=== PATIENT | male | born 1980 | race African-American/Black ===

== ENCOUNTER 2023-10-17 11:03 | Inpatient (IN) | payer MEDICAID, SELFPAY ==
[2023-10-17] VITALS (57 sets, daily range): BP systolic 124–159; BP diastolic 85–113; PULSE 62–80; RESP 12–37; TEMP 36.7; O2SAT 98–100
--- NOTE | ~2023-10-17 | CT_ITS ---
EXAMINATION: CT abdomen pelvis w con DATE: 10/17/2023 12:58 INDICATION: Pancreatitis with chronic abdominal pain, nausea and vomiting TECHNIQUE: Computed tomography (CT) of the abdomen and pelvis was performed with 100 mL Omnipaque-350 intravenous contrast. Automated exposure control and iterative reconstruction technique were employe d. The dose-length product was 227.42 mGy-cm. COMPARISON: None FINDINGS: Minimal dependent atelectasis in the lower lobes. Heart size is normal. No pericardial or pleural eff usion. Mild focal hepatic steatosis along the ligamentum teres. There are a few scattered subpleural low-attenuation likely hepatic cysts. Gallbladder, spleen, bilateral adrenal glands and kidneys are n ormal. The common bile duct is dilated to 10 mm but appears stable distally with no evident choledoch olithiasis. There is dilation of the main pancreatic duct beginning at the head of the pancreas. There is subtle haziness to the fat surrounding the head and uncinate process of the pancreas and some wall thickenin g of the adjacent second and third portion of the duodenum which suggests acute pancreatitis. 2.6 x 2 .0 x 2.0 cm loculated fluid collection which appears centered within the uncinate process of the panc reas which is age indeterminate potentially either acute or chronic collection or more chronic walled off necrosis. Bowels including the appendix are otherwise normal. Bladder is normal. No free intraperitoneal gas or fluid. No pathologically enlarged abdominal or pelvic lymphadenopathy. Minimal lumbar levocurvature. IMPRESSION: 1. Inflammatory stranding surrounding the head and uncinate process of pancreas with age-indeterminat e 2.6 x 2.0 x 2.0 cm loculated fluid collection within the uncinate process of the pancreas which cou ld represent either an acute necrotic collection or more chronic walled off necrosis related to prior pancreatitis. 2. Dilation of the common and main pancreatic ducts without evident obstructing gallstones. Could con project control analyst MRCP however for more sensitive evaluation. Reviewed, dictated and finalized at location A. IMPRESSION: 1. Inflammatory stranding surrounding the head and uncinate process of pancreas with age-indeterminate 2.6 x 2.0 x 2.0 cm loculated fluid collection within th e uncinate process of the pancreas which could represent either an acute necrot ic collection or more chronic walled off necrosis related to prior pancreatitis . 2. Dilation of the common and main pancreatic ducts without evident obstructing gallstones. Could consider MRCP however for more sensitive evaluation.
[2023-10-17 11:18] LABS: Hematocrit 42.7 % (42.0-52.0); Hemoglobin 14.3 g/dL (14.0-18.0); Red Blood Count 4.67 M/mm3 (4.6-6.20); White Blood Count 5.9 K/mm3 (4.5-10.0)
[2023-10-17 11:19] LABS: Basophils Percent Auto 0.7 % (0.2-1.2); Eosinophils Absolute Auto 0.1 K/mm3 (0-0.3); Immature Granulocyte Absolute 0.01 K/mm3 (0.00-0.031); Immature Granulocyte Percent A 0.2 % (0-0.5); Lymphocytes Absolute Auto 1.67 K/mm3 (0.9-3.2); Lymphocytes Percent Auto 28.3 % (18.3-44.2); Mean Corpuscular HGB Conc 33.5 g/dl (32-36); Mean Corpuscular Hemoglobin 30.6 pg (26-34); Mean Corpuscular Volume 91.4 fl (80-100); Mean Platelet Volume 10.5 fl (7.4-10.4); Monocytes Absolute Auto 0.6 K/mm3 (0.1-0.6); Monocytes Percent Auto 10.8 % (2.6-8.5); Neutrophils Absolute Auto 3.5 K/mm3 (1.3-6.7); Platelet Count Result 240 k/mm3 (150-375); Red Cell Distribution Width 13.2 % (11.5-14.5)
[2023-10-17 11:45] LABS: Appearance Urine Clear (Clear); Bacteria Urine None Seen /hpf; Bilirubin Urine Negative (Negative); Blood Urine Negative (Negative); Color Urine Dark Yellow (Yellow); Glucose Urine UA Negative (Negative); Ketones Urine 2+ mg/dL (Negative); Leukocyte Esterase Ur Trace LEU/UL (Negative); Nitrate Urine Negative (Negative); Non Pathogenic Casts 0-2; Protein Urine Trace mg/dL (Negative); RBC Urine 0-2 /hpf (0-2); Specific Grav Ur 1.019 (1.001-1.035); Squamous Epithelial Cell Urine None Seen /hpf (Few); WBC Urine 0-5 /hpf (0-3); pH Urine 6.5 (5.0-9.0)
[2023-10-17 11:46] LABS: Add Urine Microscopic? YES
[2023-10-17 12:25] LABS: Alanine Aminotransferase 31 U/L (6-50); Albumin Level 4.7 g/dL (3.5-5.1); Alkaline Phosphatase 170 U/L (38-126); Anion Gap 8 mmol/L (4-12); Aspartate Amino Transferase 31 U/L (17-59); Bilirubin,Total 2.1 mg/dL (0.2-1.3); Blood Urea Nitrogen 6 mg/dL (9-20); Calcium 9.4 mg/dL (8.4-10.2); Carbon Dioxide 28 mmol/L (22-30); Chloride 102 mmol/L (98-107); Estimated CRCL calculation 112 ml/min; Estimated Glomerular Filt Rate > 60; Glucose 80 mg/dL (65-110); Lipase 1109 U/L (23-300); Potassium 3.5 mmol/L (3.4-5.0); Sodium 138 mmol/L (137-145)
--- NOTE | 2023-10-17 12:40 | ED.ABDPAIN ---
HPI - Abdominal Pain General Chief Complaint: Abdominal Pain <Jay Alvarez MD - Last Filed: 10/21/23 07:00> Stated Complaint: abd pain <Jay Alvarez MD - Last Filed: 10/21/23 07:00> Time Seen by Provider: 10/17/23 11:56 <Jay Alvarez MD - Last Filed: 10/21/23 07:00> History of Present Illness HPI narrative: 43-year-old male with history of pancreatitis secondary to alcohol consumption presents emergency department complaining epigastric pain state he feels is reminiscent to his previous episodes of pancreatitis. Patient states he has had some Worsening decreased p.o. intake over the course of the last month with some associated nausea which is help patient states his pancreatitis develops. patient did drink alcohol last night It did have worsening nausea and vomiting. Patient attempted have follow-up with a primary care physician today and was referred to the emergency department <Jay Alvarez MD - Last Filed: 10/21/23 07:00> Related Data Home Medications: Home Medications Medication Instructions Recorded Confirmed No Home Medications 10/18/23 10/18/23 <Jay Alvarez MD - Last Filed: 10/21/23 07:00> Allergies/Adverse Reactions: Allergies Allergy/AdvReac Type Severity Reaction Status Date / Time No Known Allergies Allergy Verified 10/18/23 18:35 <Jay Alvarez MD - Last Filed: 10/21/23 07:00> Review of Systems Review of Systems: All systems reviewed & are unremarkable except as noted in HPI and below <Jay Alvarez MD - Last Filed: 10/21/23 07:00> [facility] Past Medical History Medical History: Medical History (Updated 10/20/23 @ 12:19 by Rayshawn Edmonds MD) Heavy alcohol use Pancreatitis Prominent ampulla of Vater <Jay Alvarez MD - Last Filed: 10/21/23 07:00> Surgical History Surgical History: Surgical History No significant past surgical history <Jay Alvarez MD - Last Filed: 10/21/23 07:00> Family History Family History: Family History Grandparent Hypertension Cancer <Jay Alvarez MD - Last Filed: 10/21/23 07:00> Social History Social History: Social History Smoking status: Former smoker Tobacco type: cigarettes Second hand tobacco smoke exposure: Yes Smoking end date: 10/18/23 Alcohol intake: current Drinks per week: 4 Substance use: current Substance use type: marijuana Do You Feel Safe in your Home?: Yes Lack of Transportation: No Lack of Food: Never True Current Housing: I Have Housing Concerned About Future Housing: No Difficulty Paying Gas/Electric Bills: No Difficulty Paying for Meds: No Currently Unemployed: No Education: Decline to Answer Difficulty w/ Childcare or Family Care: No Spiritual care concerns: No <Jay Alvarez MD - Last Filed: 10/21/23 07:00> Exam Narrative: APPEARANCE: Well appearing, no pain, no distress, well-nourished. HEAD: normocephalic, atraumatic. EYES: PERRLA/EOMI, conjunctivae clear. NOSE: Normal no drainage EARS:TMS clear with good light reflex. THROAT: Pharynx clear, no exudate. NECK: Supple. No adenopathy, no masses. RESPIRATORY: Airway patent, respirations nonlabored. Clear to auscultation bilaterally, no rales, rhonchi, wheezing. CARDIOVASCULAR: Regular rate and rhythm without murmurs rubs or gallops. ABDOMINAL: Soft, nontender, nondistended, normal bowel sounds MUSCULOSKELETAL: Moves all extremities. Strength/ROM intact, No edema, No calf tenderness. NEURO: Alert. Cranial nerves II through XII intact. grossly intact SKIN: Warm, dry. Normal Color <Jay Alvarez MD - Last Filed: 10/21/23 07:00> Course Course Emergency Course: patient was accepted for transfer to [facility] for possible necrotizing pancreatitis
[2023-10-17] MEDS: SODIUM CHLORIDE 0.9% IV 1,000 ML 999 ML IV CONT ×2 (12:42→15:21)
[2023-10-18] VITALS (11 sets, daily range): BP systolic 123–155; BP diastolic 86–99; PULSE 59–82; RESP 14–18; TEMP 36.4–36.8; O2SAT 97–100
[2023-10-18] MEDS: SODIUM CHLORIDE 0.9% IV 1,000 ML 125 ML IV CONT ×3 (00:56→16:34)
--- NOTE | 2023-10-18 13:08 | PC.NURSE ---
updated pt on bed status. offered pt toiletry items and denied but socks were given
--- NOTE | 2023-10-18 15:53 | PC.NURSE ---
update bed status - pt remains on waitlist [facility] @ max. Capacity
--- NOTE | 2023-10-18 17:32 | PM.IMHP ---
H&P: HPI History of Present Illness Date/Time: 10/18/23 17:32 Chief Complaint: Abdominal Pain Narrative: 43 y/o M presents here with abdominal pain with PMH of acute pancreatitis and alcohol use. The patient presents here for further evaluation of abdominal pain. The patient reports onset of epigastric abdominal pain that has been intermittent/daily for the past month. Sought care today at the direction of a PCP that he is attempting to establish care. The pain is described as burning/aching/hunger pain, intermittent radiation into his back or RUQ, intermittent, aggravated by eating, and alleviated by baking soda/water or Tylenol occasionally. The patient reported the pain is similar to previous episodes of pancreatitis. Currently accompanied by reduced p.o. intake, early satiety, GERD, and nausea with occasional vomiting. N/V typically occurring about an hour after eating. Current alcohol: 3-4 drinks on 2-3 nights per week, before this month he was pint and a few drinks after daily since 2020 (started to become excessive during the pandemic). Last drink on 10/15. He does not follow any particular diet (i.e. low fat). Last episode of pancreatitis that he sought treatment for was on 2021. Denies any current tremors, diaphoresis, agitation, hallucinations, fever, chills, body aches. Has had 3-4 liquid stools today. Patient also a daily smoker. Initial VS at presentation: 98? F, HR 74, RR 16, 135/96, and 98% on RA. ED workup showed: No leukocytosis, no anemia, creatinine 0.7 and normal GFR you, total bilirubin 2.1, alk-phos 170, lipase 1109, and UA not consistent with UTI. CT of the abdomen/pelvis showed inflammatory stranding surrounding the head and uncinate process of the pancreas with an age indeterminate loculated fluid collection within the uncinate process of the pancreas and dilation of the common in main pancreatic ducts without evident obstructing gallstone. Review of Systems Review of Systems: All systems reviewed & are unremarkable except as noted in HPI and below PMFSH Past Medical History Medical History Heavy alcohol use Pancreatitis Surgical History Surgical History No significant past surgical history Family History Family History Grandparent Hypertension Cancer Social History Social History Smoking status: Former smoker Tobacco type: cigarettes Second hand tobacco smoke exposure: Yes Smoking end date: 10/18/23 Alcohol intake: current Drinks per week: 4 Substance use: current Substance use type: marijuana Do You Feel Safe in your Home?: Yes Lack of Transportation: No Lack of Food: Never True Current Housing: I Have Housing Concerned About Future Housing: No Difficulty Paying Gas/Electric Bills: No Difficulty Paying for Meds: No Currently Unemployed: No Education: Decline to Answer Difficulty w/ Childcare or Family Care: No Spiritual care concerns: No Meds Home Medications and Allergies Home Medications Medication Instructions Recorded Confirmed Type No Home Medications 10/18/23 10/18/23 History Allergies Allergy/AdvReac Type Severity Reaction Status Date / Time No Known Allergies Allergy Verified 10/18/23 18:35 Vital Signs Vital Signs - 24 hr 10/17/23 17:45 10/17/23 18:00 10/17/23 18:01 Pulse Rate 74 76 75 Respiratory Rate 17 22 H 21 H Blood Pressure 136/98 H Pulse Oximetry 100 100 100 10/17/23 18:16 10/17/23 18:30 10/17/23 18:45 Pulse Rate 75 67 73 Respiratory Rate 12 16 16 Blood Pressure Pulse Oximetry 100 10/17/23 19:02 10/17/23 19:03 10/17/23 19:21 Pulse Rate 80 76 Respiratory Rate 17 22 H Blood Pressure 124/85 Pulse Oximetry 100 10/17/23 19:30 10/17/23 19:45 10/17/23 20:0
[2023-10-18] MEDS: SODIUM CHLORIDE 0.9% IV 1,000 ML 175 ML IV CONT (17:50)
--- NOTE | 2023-10-18 17:53 | PC.NURSE ---
ordered pt clear liquid
--- NOTE | 2023-10-18 18:28 | PC.NURSE ---
This patient, Mekhi Griffin, was admitted to [address] [place] [address] Room 314-02 at 18:15 Patient/family oriented to hospital policies and general routines including ID bracelet, bed and alarms, visiting hours, pain management, procedures, bathroom and other care routines, personal items, smoking policy, room service/diet, and visiting hours. Information on how to activate the Rapid Response Team has been discussed. Patient/Family are encouraged to report perceived risks to care and to ask questions if they do not understand what they are told or what they should do.
[2023-10-18] MEDS: MEROPENEM 1 GM/NS 100 ML 1 GM/100 ML BAG IVPB (22:39)
[2023-10-18] MEDS: traZODone HCL 50 MG TABLET PO (22:39)
[2023-10-19] MEDS: SODIUM CHLORIDE 0.9% IV 1,000 ML 175 ML IV CONT ×4 (02:00→21:09)
[2023-10-19 06:00] VITALS: BP 143/95; PULSE 66; RESP 16; TEMP 36.6; O2SAT 100
[2023-10-19] MEDS: MEROPENEM 1 GM/NS 100 ML 1 GM/100 ML BAG IVPB ×3 (06:33→21:09)
[2023-10-19 06:47] LABS: Basophils Percent Auto 0.6 % (0.2-1.2); Eosinophils Absolute Auto 0.1 K/mm3 (0-0.3); Eosinophils Percent Auto 2.3 % (0-4.4); Hematocrit 35.3 % (42.0-52.0); Immature Granulocyte Absolute 0.01 K/mm3 (0.00-0.031); Immature Granulocyte Percent A 0.2 % (0-0.5); Lymphocytes Absolute Auto 1.96 K/mm3 (0.9-3.2); Mean Corpuscular Hemoglobin 31.2 pg (26-34); Mean Corpuscular Volume 91.7 fl (80-100); Mean Platelet Volume 10.8 fl (7.4-10.4); Monocytes Absolute Auto 0.6 K/mm3 (0.1-0.6); Monocytes Percent Auto 11.8 % (2.6-8.5); Neutrophils Absolute Auto 2.4 K/mm3 (1.3-6.7); Neutrophils Percent Auto 47.1 % (45.5-73.1); Platelet Count Result 190 k/mm3 (150-375); Red Blood Count 3.85 M/mm3 (4.6-6.20); Red Cell Distribution Width 13.2 % (11.5-14.5); White Blood Count 5.2 K/mm3 (4.5-10.0)
[2023-10-19 06:58] LABS: Alanine Aminotransferase 46 U/L (6-50); Albumin Level 3.7 g/dL (3.5-5.1); Alkaline Phosphatase 151 U/L (38-126); Anion Gap 5 mmol/L (4-12); Aspartate Amino Transferase 37 U/L (17-59); Bilirubin,Total 2.2 mg/dL (0.2-1.3); Blood Urea Nitrogen 4 mg/dL (9-20); Calcium 8.5 mg/dL (8.4-10.2); Carbon Dioxide 25 mmol/L (22-30); Chloride 109 mmol/L (98-107); Estimated CRCL calculation 112 ml/min; Estimated Glomerular Filt Rate > 60; Glucose 83 mg/dL (65-110); Lipase 1120 U/L (23-300); Magnesium 1.8 mg/dL (1.6-2.3); Phosphorus 3.1 mg/dL (2.5-4.5); Potassium 3.6 mmol/L (3.4-5.0); Sodium 139 mmol/L (137-145)
[2023-10-19 08:06] LABS: Cholesterol 145 mg/dL (0-200); HDL Direct 57 mg/dL; Triglycerides 51 mg/dL (<150)
[2023-10-19 08:17] LABS: LDL Cholesterol Direct 70 mg/dL
--- NOTE | 2023-10-19 08:28 | PM.IMPN ---
Progress Note: A&P Assessment and Plan (1) Necrotizing pancreatitis: Code(s): K85.91 - Acute pancreatitis with uninfected necrosis, unspecified Status: Acute Assessment and Plan: - did not meet SIRS criteria - acute, possible necrosis - IVF: NS 175 mL/hr - trend lipase, currently: 1109 - AST and ALT WNL, total bilirubin 2.1. trend LFTs. - lipid panel added, previously suspected to be secondary to ETOH use - pain control with Tylenol, [place], and Morphine - zofran prn for nausea - CT abd/pelvis: 1. Inflammatory stranding surrounding the head and uncinate process of pancreas with age-indeterminate 2.6 x 2.0 x 2.0 cm loculated fluid collection within the uncinate process of the pancreas which could represent either an acute necrotic collection or more chronic walled off necrosis related to prior pancreatitis. 2. Dilation of the common and main pancreatic ducts without evident obstructing gallstones. Could consider MRCP however for more sensitive evaluation. - ETOH: 3-4 drinks on 2-3 nights per week for the past month, heavier use prior. - not currently on any home medications - consult to geriatric assistant for education on low fat diet - GI consulted, awaiting recs - clear liquids, NPO at midnight or NPO if bed becomes available at tertiary facility - [facility], accepted on 10/16 - On Meropenem on 10/17 Plan Patient here with acute pancreatitis. Imaging showed an age indeterminate loculated fluid collection of the pancreas which may represent either acute necrotic collection or chronic walled-off necrosis. Continue IV fluids, pain control, and GI consulted while awaiting transfer to [facility]. Accepted on 10/16 at [facility]. Starting broad-spectrum antibiotics: Meropenem on 10/17. Diet: Clear liquids, NPO midnight GI Prophylaxis: Pantoprazole IVP DVT Prophylaxis: SCDs Lines: Peripheral Code Status: Full code, emergency contact is Sherly Griffin (sister) Subjective Date/time seen: 10/19/23 08:28 Interval history: Pain is controlled. No Nausea vomiting. GI has been consulted. IV fluid ongoing discussed with the nursing staff. Review of Systems Review of Systems: All systems reviewed & are unremarkable except as noted in HPI and below Exam Narrative: GENERAL: The patient is well developed, not in acute distress HEENT: Nonicteric sclerae, PERRLA, EOMI. Oropharynx clear. Moist mucous membranes. Conjunctivae appear well perfused. CHEST: Chest wall is nontender. HEART: Regular rate and rhythm without murmur, rubs, or gallops LUNGS: Clear to auscultation bilaterally. no respiratory distress ABDOMEN: Soft, positive bowel sounds, non-tender, no organomegaly. SKIN: No rash, no excessive bruising, petechiae, or purpura. NEUROLOGIC: Cranial nerves II-XII intact, alert and oriented x 3, no gross motor deficits EXTREMITIES: no edema, cyanosis or clubbing Objective Data Vital Signs Vital Signs: Vital Signs - 24 hr 10/18/23 08:29 10/18/23 11:40 10/18/23 15:50 Temperature Pulse Rate 63 62 65 Respiratory Rate 15 16 16 Blood Pressure 123/86 126/94 H 135/94 H Pulse Oximetry 100 100 100 Oxygen Delivery 10/18/23 17:54 10/18/23 18:41 10/18/23 18:31 Temperature 97.6 F Pulse Rate 73 82 Respiratory Rate 18 18 Blood Pressure 140/90 155/91 H Pulse Oximetry 100 100 Oxygen Delivery Room Air 10/18/23 21:17 10/18/23 20:00 10/19/23 06:00 Temperature 98.2 F 97.8 F Pulse Rate 66 66 Respiratory Rate 16 16 Blood Pressure 144/92 H 143/95 H Pulse Oximetry 100 100 Oxygen Delivery Room Air 10/18/23 18:35 Temperature 97.6 F Pulse Rate 82 Respiratory Rate Blood Pressure 155/91 H Pulse Oximetry Oxygen Delivery Intake/Output Intake/Output: Intake & Output 10/16/23 10/17/23 10/18/23 10/19/23 23:59 23:59 23:59 23:59 Intake Total 1999 3168.8 Balance 1999 3168.8 Meds/Results Medications: Active Medications Generic Name Dose Route Start Last Admin Trade Name
--- NOTE | 2023-10-19 08:44 | P.CONGI_ITS ---
I, Rayshawn Edmonds MD, have provided a substantive portion of the care of this patient and discussed the patient with my Nurse Practitioner. I have reviewed any new relevant radiographic and laboratory results including medications. I agree with her documentation as noted below.?I personally performed the medical decision making and much of the history and exam for this encounter. briefly, he has alcohol abuse diagnosed with pancreatitis about 2 years ago when he was in [place], here with pancreatitis, CT scan noted loculated lesion in pancreas concerning for WOPN, also noted bili 2. He has epigastric discomfort with weight loss last few weeks. He is supposed to be transferred to [facility] for further evaluation of complicated pancreatitis, in the meantime we can proceed with EGD tomorrow to assess if ulcer, esophageal lesion, etc. Assessment and Plan Assessment and plan (1) Abdominal pain, acute, epigastric: Code(s): R10.13 - Epigastric pain Status: Acute (2) Necrotizing pancreatitis: Code(s): K85.91 - Acute pancreatitis with uninfected necrosis, unspecified Status: Acute (3) ETOH abuse: Code(s): F10.10 - Alcohol abuse, uncomplicated Status: Acute (4) Abnormal findings on imaging of biliary tract: Code(s): R93.2 - Abnormal findings on diagnostic imaging of liver and biliary tract Status: Acute (5) Anemia: Qualifiers: Anemia type: other cause Other causes of anemia: other cause, not classified Qualified Code(s): D64.89 - Other specified anemias Code(s): D64.9 - Anemia, unspecified Status: Acute (6) Elevated LFTs: Code(s): R79.89 - Other specified abnormal findings of blood chemistry Status: Acute Plan 1) Abnormal imaging biliary/epigastric pain/ acute pancreatitis/elevated lipase / ETOH abuse: Patient presented to the emergency room 10/17/2023 with complaints of epigastric pain that had been occurring for more than a month. Does have a history of EtOH abuse and prior episode of acute pancreatitis. CT showed inflammatory stranding surrounding the head and angulated process of the pancreas with age indeterminate 2.6 x 2.0 x 2.0 cm loculated fluid collection within the angulated process of the pancreas which could represent either an acute necrotic collection or more chronic walled-off necrosis related to prior pancreatitis. Common bile duct and main pancreatic duct without evidence of obstruction but CBD dilated to 10 mm but appears stable distally. On admission lipase at 1109 and today 1120. WBC is normal at 5. Patient pending transfer to [facility] once a bed is available. Patient states that he was initially diagnosed with pancreatitis 2 years ago while living in [facility]. He states that his symptoms have been constant but varying in severity since then but he has been without insurance since moving to [place]. * abstinence from alcohol recommended * Pending transfer for further workup/treatment * Continue supportive treatment to include pain management and antiemetics 2) Epigastric/ upper abdominal pain /nausea / vomiting / GERD / appetite loss /early satiety /dysphagia/melena: Per patient he had an EGD approximately 2 years ago while living in [place] but these results are not available for review. He admits to epigastric and upper abdominal pain that he describes as a dull ache that radiates into his back and until recently was manageable . He has intermittent nausea and vomiting that typically occurs episodically but has been controlled since admission. Admits to reflux and has been taking [id number] Prilosec on an as-needed basis. Admits to intermittent dysphagia wi
--- NOTE | 2023-10-19 08:44 | WPDGICN ---
Assessment and Plan Assessment and plan (1) Abdominal pain, acute, epigastric: Code(s): R10.13 - Epigastric pain Status: Acute (2) Necrotizing pancreatitis: Code(s): K85.91 - Acute pancreatitis with uninfected necrosis, unspecified Status: Acute (3) ETOH abuse: Code(s): F10.10 - Alcohol abuse, uncomplicated Status: Acute (4) Abnormal findings on imaging of biliary tract: Code(s): R93.2 - Abnormal findings on diagnostic imaging of liver and biliary tract Status: Acute (5) Anemia: Qualifiers: Anemia type: other cause Other causes of anemia: other cause, not classified Qualified Code(s): D64.89 - Other specified anemias Code(s): D64.9 - Anemia, unspecified Status: Acute (6) Elevated LFTs: Code(s): R79.89 - Other specified abnormal findings of blood chemistry Status: Acute Plan 1) Abnormal imaging biliary/epigastric pain/ acute pancreatitis/elevated lipase / ETOH abuse: Patient presented to the emergency room 10/17/2023 with complaints of epigastric pain that had been occurring for more than a month. Does have a history of EtOH abuse and prior episode of acute pancreatitis. CT showed inflammatory stranding surrounding the head and angulated process of the pancreas with age indeterminate 2.6 x 2.0 x 2.0 cm loculated fluid collection within the angulated process of the pancreas which could represent either an acute necrotic collection or more chronic walled-off necrosis related to prior pancreatitis. Common bile duct and main pancreatic duct without evidence of obstruction but CBD dilated to 10 mm but appears stable distally. On admission lipase at 1109 and today 1120. WBC is normal at 5. [facility] pending [facility] a bed [facility]. Patient states that he was initially diagnosed with pancreatitis 2 years ago while living in [facility]. He states that his symptoms have been constant but varying in severity since then but he has been without insurance since moving to [place]. abstinence from alcohol recommended Pending transfer for further workup/treatment Continue supportive treatment to include pain management and antiemetics 2) Epigastric/ upper abdominal pain /nausea / vomiting / GERD / appetite loss /early satiety /dysphagia/melena: Per patient he had an EGD approximately 2 years ago while living in [place] but these results are not available for review. He admits to epigastric and upper abdominal pain that he describes as a dull ache that radiates into his back and until recently was manageable . He has intermittent nausea and vomiting that typically occurs episodically but has been controlled since admission. Admits to reflux and has been taking [id number] Prilosec on an as-needed basis. Admits to intermittent dysphagia with solid foods but denies any difficulty swallowing liquids or pills. Admits to intermittent melena, decreased appetite, early satiety, and a 15-20 lb weight loss over the past 6 months which was unintentional. He denies any NSAID or aspirin use. Symptoms secondary to acute versus chronic pancreatitis versus motility disorder versus peptic ulcer disease versus gallbladder dysfunction versus ulcer versus other etiology Continue PPI Continue antiemetics plan for EGD with possible dilation tomorrow care with NSAIDs, aspirin, or anticoagulants 3) Elevated LFTs: Labs today show total bilirubin 2.2 and alkaline phosphatase 170. Liver transaminase normal with AST 37 and ALT 46. BMP normal. There were few scattered subpleural low-attenuation findings in the liver likely cysts but no signs of chronic liver disease. no signs of CBD duct dilation or obstruction. Likely secondary to problem #1 but will order a liver workup to rule out other possible hepatic etiology 3) Anemia: patient has never had a colonoscopy. EGD 2 years ago, results unknown. Patient admits to intermittent melena. H&H normal
[2023-10-19] MEDS: PANTOPRAZOLE SODIUM IV 40 MG VIAL IV PUSH (09:17)
[2023-10-19 09:41] VITALS: BMI 21.5
[2023-10-19 10:46] VITALS: O2SAT 96
[2023-10-19 13:29] LABS: INR 1.1; Prothrombin Time 14.3 Seconds (11.1-14.7)
[2023-10-19 13:38] LABS: Alanine Aminotransferase 42 U/L (6-50); Albumin Level 4.1 g/dL (3.5-5.1); Alkaline Phosphatase 156 U/L (38-126); Aspartate Amino Transferase 32 U/L (17-59); Bilirubin,Total 2.6 mg/dL (0.2-1.3)
[2023-10-19 13:58] VITALS: BP 148/100; PULSE 66; RESP 16; TEMP 35.9; O2SAT 100
[2023-10-19 16:04] LABS: Iron 78 ug/dL (49-181)
[2023-10-19 16:15] LABS: Percent Iron Saturation 26 % (20-50)
--- NOTE | 2023-10-19 16:32 | PC.NURSE ---
This RN spoke with [facility] transfer [facility] on the phone. Still no bed available at this time.
[2023-10-19 20:10] VITALS: BP 134/92; PULSE 73; RESP 20; TEMP 36.9; O2SAT 100
[2023-10-19] MEDS: traZODone HCL 50 MG TABLET PO (21:09)
[2023-10-20 04:00] VITALS: BP 127/93; PULSE 55; RESP 16; TEMP 36.2; O2SAT 100
[2023-10-20] MEDS: SODIUM CHLORIDE 0.9% IV 1,000 ML 175 ML IV CONT ×2 (04:10→09:53)
[2023-10-20] MEDS: MEROPENEM 1 GM/NS 100 ML 1 GM/100 ML BAG IVPB ×2 (06:37→14:59)
[2023-10-20 07:44] LABS: Basophils Percent Auto 0.9 % (0.2-1.2); Eosinophils Absolute Auto 0.1 K/mm3 (0-0.3); Eosinophils Percent Auto 2.2 % (0-4.4); Hemoglobin 12.7 g/dL (14.0-18.0); Immature Granulocyte Absolute 0.01 K/mm3 (0.00-0.031); Immature Granulocyte Percent A 0.2 % (0-0.5); Lymphocytes Absolute Auto 1.53 K/mm3 (0.9-3.2); Lymphocytes Percent Auto 34.3 % (18.3-44.2); Mean Corpuscular HGB Conc 33.4 g/dl (32-36); Mean Corpuscular Hemoglobin 30.7 pg (26-34); Mean Corpuscular Volume 91.8 fl (80-100); Mean Platelet Volume 11.2 fl (7.4-10.4); Monocytes Absolute Auto 0.5 K/mm3 (0.1-0.6); Monocytes Percent Auto 12.1 % (2.6-8.5); Neutrophils Absolute Auto 2.2 K/mm3 (1.3-6.7); Neutrophils Percent Auto 50.3 % (45.5-73.1); Platelet Count Result 199 k/mm3 (150-375); Red Blood Count 4.14 M/mm3 (4.6-6.20); Red Cell Distribution Width 13.4 % (11.5-14.5); White Blood Count 4.5 K/mm3 (4.5-10.0)
[2023-10-20 07:53] LABS: Alanine Aminotransferase 35 U/L (6-50); Albumin Level 4.4 g/dL (3.5-5.1); Alkaline Phosphatase 156 U/L (38-126); Anion Gap 10 mmol/L (4-12); Aspartate Amino Transferase 29 U/L (17-59); Bilirubin,Total 2.6 mg/dL (0.2-1.3); Blood Urea Nitrogen 2 mg/dL (9-20); Carbon Dioxide 21 mmol/L (22-30); Chloride 110 mmol/L (98-107); Estimated CRCL calculation 112 ml/min; Estimated Glomerular Filt Rate > 60; Glucose 92 mg/dL (65-110); Lipase 376 U/L (23-300); Magnesium 1.8 mg/dL (1.6-2.3); Potassium 3.7 mmol/L (3.4-5.0); Sodium 141 mmol/L (137-145)
[2023-10-20] MEDS: PANTOPRAZOLE SODIUM IV 40 MG VIAL IV PUSH (09:45)
[2023-10-20 11:22] VITALS: BP 139/89; PULSE 60; RESP 18; TEMP 36.4; O2SAT 100
[2023-10-20] MEDS: LACTATED RINGERS 1,000 ML 150 ML IV CONT (11:24)
--- NOTE | 2023-10-20 11:36 | WPDANESEPPF ---
Anes - Initial Pre Proc Eval Procedure: Operation Date: 10/20/23 15:30 Proposed Procedures p Esophagogastroduodenoscopy - Rayshawn Edmonds MD Date/Time: 10/20/23 11:36 Surgeon: Drew Mock MD Pre Op Diagnosis: pancreatitis Patient Data Age: 43 Gender: M Height: 1.78 m Weight: 68.18 kg Last Vital Signs Temp 97.5 F L 10/20/23 11:22 Pulse 60 10/20/23 11:22 Resp 18 10/20/23 11:22 BP 139/89 10/20/23 11:22 Pulse Ox 100 10/20/23 11:22 O2 Del Method Room Air 10/20/23 11:22 Allergies Allergy/AdvReac Type Severity Reaction Status Date / Time No Known Allergies Allergy Verified 10/18/23 18:35 Home Medications Medication Instructions Recorded Confirmed Type No Home Medications 10/18/23 10/18/23 History Laboratory Tests 10/19/23 10/20/23 12:56 06:39 WBC 4.5 K/mm3 (4.5-10.0) RBC 4.14 L M/mm3 (4.6-6.20) Hgb 12.7 L g/dL (14.0-18.0) Hct 38.0 L % (42.0-52.0) MCV 91.8 fl (80-100) MCH 30.7 pg (26-34) MCHC 33.4 g/dl (32-36) RDW 13.4 % (11.5-14.5) Plt Count 199 k/mm3 (150-375) MPV 11.2 H fl (7.4-10.4) Immature Gran % (Auto) 0.2 % (0-0.5) Neut % (Auto) 50.3 % (45.5-73.1) Lymph % (Auto) 34.3 % (18.3-44.2) [place] % (Auto) 12.1 H % (2.6-8.5) Eos % (Auto) 2.2 % (0-4.4) Baso % (Auto) 0.9 % (0.2-1.2) Lymph # (Auto) 1.53 K/mm3 (0.9-3.2) [place] # (Auto) 0.5 K/mm3 (0.1-0.6) Eos # (Auto) 0.1 K/mm3 (0-0.3) Baso # (Auto) 0.0 K/mm3 (0.0-0.1) Abs Immat Gran (auto) 0.01 K/mm3 (0.00-0.031) Absolute Neuts (auto) 2.2 K/mm3 (1.3-6.7) Absolute Nucleated RBC 0.000 K/mm3 (0.0-0.012) Nucleated RBC % 0.0 % (0.0-0.2) PT 14.3 Seconds (11.1-14.7) INR 1.1 Sodium 141 mmol/L (137-145) Potassium 3.7 mmol/L (3.4-5.0) Chloride 110 H mmol/L (98-107) Carbon Dioxide 21 L mmol/L (22-30) Anion Gap 10 mmol/L (4-12) BUN 2 L mg/dL (9-20) Creatinine 0.70 mg/dL (0.7-1.3) Estim Creat Clear Calc 112 ml/min Estimated GFR > 60 (59 - ) Glucose 92 mg/dL (65-110) Calcium 9.0 mg/dL (8.4-10.2) Magnesium 1.8 mg/dL (1.6-2.3) Iron 78 ug/dL (49-181) TIBC 302 ug/dL (265-497) % Saturation 26 % (20-50) Ferritin 133.00 ng/mL (17.9-464) Total Bilirubin 2.6 H mg/dL 2.6 H mg/dL (0.2-1.3) (0.2-1.3) Direct Bilirubin 0.0 mg/dL (0-0.3) AST 32 U/L 29 U/L (17-59) (17-59) ALT 42 U/L 35 U/L (6-50) (6-50) Alkaline Phosphatase 156 H U/L 156 H U/L (38-126) (38-126) Liver Fibrosis Ref ID Pending Liver Fibrosis GGTP Pending Liver Total Bilirubin Pending Liver Apolipoprotein A1 Pending Liver Fibrosis ALT Pending Liver Haptoglobin Pending Liver Fib Fibro Score Pending Liver Fib Fibro Interp Pending Liver Fib Fibro Stage Pending Liver Fibrosis Footnote Pending Necroinflammator Score Pending Necroinflammator Grade Pending Necroinflam Interp Pending Total Protein 7.0 g/dL 7.0 g/dL (6.3-8.2) (6.3-8.2) Albumin 4.1 g/dL 4.4 g/dL (3.5-5.1) (3.5-5.1) [id number] Pending Ceruloplasmin Pending Lipase 376 H U/L (23-300) Alpha Fetoprotein Pending U [id number] Pending TRESA Screen Pending Mitochondria M2 IgG Ab Pending Actin IgG Antibody Pending Patient hx anesthesia problems: none Family hx anesthesia problems: none Results Review: All pre-operative results and documents have been reviewed as part of the pre-operative evaluation. [facility] Past Medical History Medical History (Reviewed 10/18/23 @ 22:20 by Belem Sims
[2023-10-20 12:06] VITALS: BP 91/56; PULSE 71; RESP 19; O2SAT 100
[2023-10-20 12:16] VITALS: BP 90/59; PULSE 67; RESP 19; O2SAT 100
[2023-10-20 12:26] VITALS: BP 104/66; PULSE 69; RESP 22; O2SAT 100
[2023-10-20 13:04] LABS: Alpha-1-Antitrypsin, QN 151 mg/dL (83-199)
[2023-10-20 14:00] VITALS: BP 102/62; PULSE 66; RESP 19; TEMP 36.4; O2SAT 99
--- NOTE | 2023-10-20 14:55 | PM.IMPN ---
Progress Note: A&P Assessment and Plan (1) Necrotizing pancreatitis: Code(s): K85.91 - Acute pancreatitis with uninfected necrosis, unspecified Status: Acute Assessment and Plan: - did not meet SIRS criteria - acute, possible necrosis - IVF: NS 175 mL/hr which will be stopped as no pain and tolerating diet - trend lipase, currently: 1109 - AST and ALT WNL, total bilirubin 2.1. trend LFTs. - lipid panel: Triglycerides 51 - pain control with Tylenol, [place], and Morphine - zofran prn for nausea - CT abd/pelvis: 1. Inflammatory stranding surrounding the head and uncinate process of pancreas with age-indeterminate 2.6 x 2.0 x 2.0 cm loculated fluid collection within the uncinate process of the pancreas which could represent either an acute necrotic collection or more chronic walled off necrosis related to prior pancreatitis. 2. Dilation of the common and main pancreatic ducts without evident obstructing gallstones. Could consider MRCP however for more sensitive evaluation. Underwent EGD which showed prominent ampulla from which biopsies were obtained. - ETOH: 3-4 drinks on 2-3 nights per week for the past month, heavier use prior. - not currently on any home medications - consult to manager export for education on low fat diet GI on board Tolerating diet - awaiting transfer to [facility], accepted on 10/16 still no bed available - On Meropenem on 10/17 If no further pain and tolerating diet will plan DC in a.m. outpatient follow-up Since afebrile and normal WBC count will stop his meropenem Subjective Date/time seen: 10/20/23 14:55 Interval history: No further pain. Underwent EGD this a.m. findings of gastritis noted. There was prominent ampulla with significant which edema from which multiple biopsies were obtained. Review of Systems Review of Systems: All systems reviewed & are unremarkable except as noted in HPI and below Exam Narrative: GENERAL: The patient is well developed, not in acute distress HEENT: Nonicteric sclerae, PERRLA, EOMI. Oropharynx clear. Moist mucous membranes. Conjunctivae appear well perfused. CHEST: Chest wall is nontender. HEART: Regular rate and rhythm without murmur, rubs, or gallops LUNGS: Clear to auscultation bilaterally. no respiratory distress ABDOMEN: Soft, positive bowel sounds, non-tender, no organomegaly. SKIN: No rash, no excessive bruising, petechiae, or purpura. NEUROLOGIC: Cranial nerves II-XII intact, alert and oriented x 3, no gross motor deficits EXTREMITIES: no edema, cyanosis or clubbing Objective Data Vital Signs Vital Signs: Vital Signs - 24 hr 10/19/23 20:10 10/20/23 04:00 10/20/23 09:53 Temperature 98.4 F 97.2 F L Pulse Rate 73 55 L Respiratory Rate 20 16 Blood Pressure 134/92 H 127/93 H Pulse Oximetry 100 100 Oxygen Delivery Room Air 10/20/23 11:22 10/20/23 12:06 10/20/23 12:16 Temperature 97.5 F L Pulse Rate 60 71 67 Respiratory Rate 18 19 19 Blood Pressure 139/89 91/56 L 90/59 L Pulse Oximetry 100 100 100 Oxygen Delivery Room Air Room Air Room Air 10/20/23 12:26 10/20/23 14:00 Temperature 97.5 F L Pulse Rate 69 66 Respiratory Rate 22 H 19 Blood Pressure 104/66 102/62 Pulse Oximetry 100 99 Oxygen Delivery Room Air Intake/Output Intake/Output: Intake & Output 10/17/23 10/18/23 10/19/23 10/20/23 23:59 23:59 23:59 23:59 Intake Total 1999 3168.8 3965.4 2965.0 Balance 1999 3168.8 3965.4 2965.0 Meds/Results Medications: Active Medications Generic Name Dose Route Start Last Admin Trade Name Freq PRN Reason Stop Dose Admin Acetaminophen 650 mg 10/18/23 17:36 Acetaminophen 325 Mg Tablet PO Q4H PRN Mild Pain (1-3) or Fever Hydrocodone Bitart/Acetaminophen 1 tab 10/18/23 17:40 Hydrocodone/Acetaminophen (*Crx) 5-325 Mg Tablet PO Q6H PRN Pain Rated 4-6 Sodium Chloride 1,000 mls @ 175 mls/hr 10/18/23 17:30 10/20/23 10:42 Normal Saline Iv IV CONT Not Given .[id number] [facility] Tara
--- NOTE | 2023-10-20 16:08 | PM.TDS ---
Transfer Discharge Sum: Prov Provider Date of admission: 10/18/23 18:14 Primary care physician: Carlitos Hendirx MD Admitting clinician: Drew Mock MD Consults: 10/18/23 Consult to Dietitian Routine Reason for Consult:: Education on low-fat diet for pancreatitis 10/18/23 17:30 Consult to Physician Routine Comment: Consulting Provider: Rayshawn Edmonds Reason for consultation: pancreatitis, dilated common duct Has provider been notified: Yes DS: Admitting Diagnosis Discharge Date 10/20/2019 Admitting Diagnosis Abdominal pain DS: Discharge Diagnosis Discharge Diagnosis (1) Necrotizing pancreatitis: Code(s): K85.91 - Acute pancreatitis with uninfected necrosis, unspecified Status: Acute Transfer Discharge Sum: Med Medications Active and Home Medications: Home Medications No Home Medications 10/18/23 [History Confirmed 10/18/23] Active Medications Acetaminophen (Acetaminophen 325 Mg Tablet) 650 mg PO Q4H PRN PRN Reason: Mild Pain (1-3) or Fever Hydrocodone Bitart/Acetaminophen (Hydrocodone/Acetaminophen (*Crx) 5-325 Mg Tablet) 1 tab PO Q6H PRN PRN Reason: Pain Rated 4-6 Morphine Sulfate (Morphine Sulfate (*Crx) 2 Mg/Ml Inj) 2 mg IV PUSH Q2H PRN PRN Reason: Pain Rated 7-10 Ondansetron HCl (Ondansetron Inj 4 Mg/2 Ml Vial) 4 mg IV PUSH Q4H PRN PRN Reason: Nausea Pantoprazole Sodium (Pantoprazole Sodium Iv 40 Mg Vial) 40 mg IV PUSH QAM MARK Last Admin: 10/20/23 09:45 Dose: 40 mg Trazodone HCl (Trazodone Hcl 50 Mg Tablet) 50 mg PO HS PRN PRN Reason: Insomnia Last Admin: 10/19/23 21:09 Dose: 50 mg Transfer Discharge Sum: Hosp Hospital Course Hospital course: Mekhi Griffin is a 43 year old male who presented with abdominal pain. # acute pancreatitis: Did not meet SIRS criteria - acute, possible necrosis on CT - IVF: NS 175 mL/hr which will be stopped as no pain and tolerating diet - trend lipase, currently: 1109 which trended down to 368 for - AST and ALT WNL, total bilirubin 2.1. trend LFTs. - lipid panel: Triglycerides 51 - pain control with Tylenol, [place], and Morphine - zofran prn for nausea - CT abd/pelvis: 1. Inflammatory stranding surrounding the head and uncinate process of pancreas with age-indeterminate 2.6 x 2.0 x 2.0 cm loculated fluid collection within the uncinate process of the pancreas which could represent either an acute necrotic collection or more chronic walled off necrosis related to prior pancreatitis. 2. Dilation of the common and main pancreatic ducts without evident obstructing gallstones. Could consider MRCP however for more sensitive evaluation. Underwent EGD which showed prominent ampulla from which biopsies were obtained. - ETOH: 3-4 drinks on 2-3 nights per week for the past month, heavier use prior. - not currently on any home medications - consult to bricklayer for education on low fat diet GI on board Tolerating diet - awaiting transfer to [facility], accepted on 10/16 and bed was available and was eventually transferred -patient On Meropenem on 10/17 Time Spent with Patient Time attestation: Total time spent providing and/or coordinating transfer services: 35 minutes Exam Narrative: GENERAL: The patient is well developed, not in acute distress HEENT: Nonicteric sclerae, PERRLA, EOMI. Oropharynx clear. Moist mucous membranes. Conjunctivae appear well perfused. CHEST: Chest wall is nontender. HEART: Regular rate and rhythm without murmur, rubs, or gallops LUNGS: Clear to auscultation bilaterally. no respiratory distress ABDOMEN: Soft, positive bowel sounds, non-tender, no organomegaly. SKIN: No rash, no excessive bruising, petechiae, or purpura. NEUROLOGIC: Cranial nerves II-XII intact, alert and oriented x 3, no gross motor deficits EXTREMITIES: no edema, cyanosis or clubbing DS: Data Data Completed and Pending Pending studies at discharge: Pending at discharge 10/20/23 12:02 Surgical [PTH] Routine
--- NOTE | 2023-10-20 18:10 | PC.NURSE ---
This RN spoke to Ana RN at [facility] and report was given via phone. The patient was transfered to the [facility] where he was then transferred to [facility] hospital via ambulance .
[2023-10-23 12:24] LABS: Ceruloplasmin 27 mg/dL (14-30)
[2023-10-26 14:34] LABS: Alpha Fetoprotein Tumor Marker 4.5 ng/mL (<6.1)
[2023-10-27 22:48] LABS: Actin Antibody (IgG) <20 U (<20)
[2023-10-30 21:03] LABS: Mitochondrial (M2) Ab (IgG) <20.0 U
[2023-11-04 02:42] LABS: ALT 31 U/L (9-46); Alpha-2-Macroglobulin 140 mg/dL (106-279); Apolipoprotein A1 147 mg/dL (94-176); Fibrosis Score 0.61; Fibrosis Stage F3; GGT 1017 U/L (3-95); Haptoglobin 132 mg/dL (43-212); Necroinflammat Act Grade A0-A1; Total Bilirubin 1.9 mg/dL (0.2-1.2)
== END 2023-10-20 18:10 | disposition short-term general hospital (02) | DRG 282 ==
LOC: ANHED 10-18 03:31 → ANH3MEDSUR 10-18 17:50
PROVIDERS: Emergency Medicine; Internal Medicine Gastroenterology; Nurse Practitioner Family; Student in an Organized Health Care Education/Training Program; Admitting Provider Internal Medicine; Emergency Provider Preventive Medicine Aerospace Medicine; PCP Emergency Medicine; Visit Provider Internal Medicine
PROC: 0DJ08ZZ Inspection of Upper Intestinal Tract, Via Natural or Artificial Opening Endoscopic (ICD-10-PCS; CPT 43235; principal; 2023-10-20 15:30)
DX: K85.91 Acute pancreatitis with uninfected necrosis, unspecified (principal); K29.70 Gastritis, unspecified, without bleeding; F10.10 Alcohol abuse, uncomplicated; K21.9 Gastro-esophageal reflux disease without esophagitis; D64.9 Anemia, unspecified; Z87.891 Personal history of nicotine dependence
CPT/HCPCS: 36415; 74177; 80053; 80061; 80076; 81001; 81596; 82103; 82105; 82390; 82728; 83520; 83540; 83550; 83690; 83735; 84100; 85025; 85610; 86038; 86039; 86364; 88305; 96360; 96361; 99285; A9270; C9113; G0379; J2185; J2704; J7030; J7120; Q9967